=== PATIENT | female | born 1970 | race Caucasian/White ===

== ENCOUNTER 2022-07-29 13:00 | Outpatient (RCR) | payer OTHER, MEDICARE, MEDICAID, SELFPAY | END 2022-07-29 14:14 | disposition home or self-care (01) | LOC: HO.PT 13:00 | PROVIDERS: PCP Nurse Practitioner Family; Visit Provider Obstetrics & Gynecology | DX: N94.2 Vaginismus (principal) | CPT/HCPCS: 97110; 97112; 97140; 97161 ==